=== PATIENT | male | born 1965 | race Caucasian/White ===

== ENCOUNTER 2019-11-13 12:09 | Emergency (ER) | payer BC, OTHER ==
[2019-11-13 13:55] VITALS: BP 148/82
--- NOTE | 2019-11-13 14:10 | UC ---
Knee Pain HPI - HPI Summary HPI Summary: Pt presents with c/o posterior medial right leg pain, swelling, erythema and "warmth" to area. Pt has hx of superficial DVT's and has - History of Current Complaint Stated Complaint: RT LEG LUMP-HOT/SWOLLEN Time Seen by Provider: 11/13/19 13:45 Hx Obtained From: Patient Onset/Duration: Gradual Onset, Lasting Days, Still Present Severity Initially: Mild Severity Currently: Moderate Pain Intensity: 3 Character: Dull, Aching, Burning Aggravating Factor(s): Movement, Weight Bearing Alleviating Factor(s): Nothing Associated Signs And Symptoms: Positive: Swelling, Redness Able to Bear Weight: Yes - Risk Factors Septic Arthritis Risk Factor: Negative Gout Risk Factor: Age ^ 40, Male - Allergies/Home Medications Allergies/Adverse Reactions: Allergies Allergy/AdvReac Type Severity Reaction Status Date / Time No Known Allergies Allergy Verified 11/13/19 13:22 Home Medications: Home Medications Allopurinol TAB* [Zyloprim 100 MG TAB*] 100 mg PO DAILY 11/13/19 [History Confirmed 11/13/19] Aspirin [Poornima Aspirin EC Low Dose 81 MG] 1 tab PO DAILY 11/13/19 [History Confirmed 11/13/19] Pantoprazole TAB * [Protonix TAB*] 40 mg PO DAILY 11/13/19 [History Confirmed ] PMH/Surg Hx/FS Hx/Imm Hx Previously Healthy: Yes - Surgical History Surgical History: Yes Surgery Procedure, Year, and Place: anal fissure, right hand, vein stripping x3 - Family History Known Family History: Positive: Cardiac Disease - Social History Occupation: Employed Full-time Alcohol Use: Daily Substance Use Type: None Smoking Status (MU): Never Smoked Tobacco Have You Smoked in the Last Year: No Review of Systems All Other Systems Reviewed And Are Negative: Yes Constitutional: Positive: Negative Skin: Positive: Other - erythema, tender lump Eyes: Positive: Negative ENT: Positive: Negative Respiratory: Positive: Negative Cardiovascular: Positive: Negative Gastrointestinal: Positive: Negative Genitourinary: Positive: Negative Motor: Positive: Negative Neurovascular: Positive: Negative Musculoskeletal: Positive: Edema - right medial posterior knee Neurological: Positive: Negative Psychological: Positive: Negative Is Patient Immunocompromised?: No Physical Exam Triage Information Reviewed: Yes Appearance: Well-Appearing Vital Signs: Initial Vital Signs Temp 99.3 F 11/13/19 13:27 Pulse 68 11/13/19 13:27 Resp 16 11/13/19 13:27 BP 148/82 11/13/19 13:27 Pulse Ox 99 11/13/19 13:27 Vital Signs Reviewed: Yes Eye Exam: Normal ENT Exam: Normal Dental Exam: Normal Neck exam: Normal Respiratory: Positive: No respiratory distress Musculoskeletal: Positive: Edema @ - right medial posterior knee, firm, erythematous, area at varicose vein. Neurological Exam: Normal Psychological Exam: Normal Skin Exam: Other - erythema, Knee Pain Course/Dx - Course Course Of Treatment: I spoke to the salon receptionist at [facility]. I was told that there was not a provider to speak to me about this pt. That this pt had not been seen at the [facility] in over a year. When i discussed with the pt he stated that he had been there just two months ago. I was not able to get an ultrasound here in a timely manner. Pt said he has been on blood thinners befroe and seen by service greeter but no discovery as to why her gets frequent5 DVT's . Last DVT was ~one year ago. Pt was instructed to go to the closest emergency room but indicated to me that he would not go until later. - Differential Dx/Diagnosis Differential Diagnosis/HQI/PQRI: Cellulitis, DVT Provider Diagnosis: Right leg swelling Discharge ED - Sign-Out/Discharge Documenting (check all that apply): Patient Departure All imaging exams completed and their final reports reviewed: No Studies - Discharge Plan Condition: Stable Disposition: HOME-RECOMMEND TO ED Patient Education Materials: Leg Edema (ED) Referrals: Adriano Carpio MD [Primary Care Provider] - As Soon As Possible Additional Instructions: It is recommended that you go to the closest emergency room now. - Billing Disposition and Condition Condition: STABLE Disposition: Home-Recommend to ED - Attestation Statements Provider Attestation: Per institutional requirements, I have reviewed the chart, however, I was not consulted specifically or made aware of this patient by the midlevel provider. I did not personally evaluate, interact with , or disposition this patient.
== END 2019-11-13 14:18 | disposition home health service (06) ==
LOC: UCCORT 12:09
DX: R22.41 Localized swelling, mass and lump, right lower limb (principal)
CPT/HCPCS: 99202; G0463